=== PATIENT | female | born 1955 | race Caucasian/White ===

== ENCOUNTER → 2022-03-03 | Outpatient (CLI) | payer MEDICARE, BC ==
--- NOTE | 2022-03-05 18:05 | MM ---
Reason for Exam: Screening (asymptomatic). Last mammogram was performed 2 year(s) and 7 month(s) ago. Patient History: Hormonal Contraceptives, from age 18 until age 30. Maternal grandmother had breast cancer, age 80. Maternal aunt had breast cancer, age 45. Risk Values: Catrina 5 year model risk: 1.1%. NCI Lifetime model risk: 3.5%. Prior Study Comparison: 08/17/2019 Bilateral MG 3D screening mammo w/cad, [facility]. 09/06/2019 Bilateral US breast workup limited NAHOMY - 2, [facility]. Tissue Density: There are scattered fibroglandular densities. Findings: Analyzed By CAD. There is a 4 mm nodule 12 cm from the nipple in the upper outer posterior aspect left breast. This is nonspecific. Additional evaluation with ultrasound is recommended. Diagnostic mammography may be required ultrasound does not find a benign cyst No suspicious groups of microcalcifications, spiculated or lobular masses, Architectural distortion or other secondary signs of malignancy are mammographically apparent. Overall Assessment: Incomplete: need additional imaging evaluation, BI-RAD 0 Management: Diagnostic Breast Ultrasound of the left breast. A negative mammogram report should not preclude additional follow up of suspicious palpable abnormalities. Patient should continue monthly self breast exam. A clinical breast exam by your physician is recommended on an annual basis and results should be correlated with mammographic findings. Electronically signed and approved by: August Castaneda D.O. Radiologis
== END | disposition home or self-care (01) ==
LOC: RADMAMWWP 15:18
PROVIDERS: ATTEND Family Medicine
DX: Z12.31 Encounter for screening mammogram for malignant neoplasm of breast (principal); Z80.3 Family history of malignant neoplasm of breast
CPT/HCPCS: 77063; 77067

== ENCOUNTER → 2022-03-23 | Outpatient (CLI) | payer MEDICARE, BC ==
--- NOTE | 2022-03-23 15:49 | USB ---
Reason for Exam: Additional evaluation requested from abnormal screening. Patient History: Hormonal Contraceptives, from age 18 until age 30. Maternal grandmother had breast cancer, age 80. Maternal aunt had breast cancer, age 45. Risk Values: Catrina 5 year model risk: 1.1%. NCI Lifetime model risk: 3.5%. Technique: Method: Targeted. Prior Study Comparison: 08/17/2019 Bilateral MG 3D screening mammo w/cad, [facility]. 03/03/2022 Bilateral MG 3D screening mammo w/cad, [facility]. Findings: The upper outer quadrant of the left breast was scanned. Finding 1: Lymph Nodes - Intramammary findings. Laterality: Left. Size 4 x 4 x 4 mm. 2 O'clock Quadrant: Upper outer. 12 cm cm from nipple. There is a hypoechoic solid area 12 cm from the nipple 2:00 position which has some internal vascularity color flow. This appears to be a lymph node with a vascular hilum. Overall Assessment: Probably benign, BI-RAD 3 Management: Screening Mammogram of both breasts in 1 year. A clinical breast exam by your physician is recommended on an annual basis and results should be correlated with mammographic findings. Electronically signed and approved by: August Castaneda D.O. Radiologis
== END | disposition home or self-care (01) ==
LOC: RADUSWWP 15:17
PROVIDERS: ATTEND Family Medicine
DX: R92.8 Other abnormal and inconclusive findings on diagnostic imaging of breast (principal); Z80.3 Family history of malignant neoplasm of breast

== ENCOUNTER → 2022-06-25 | Outpatient (CLI) | payer MEDICARE, BC ==
[2022-06-25 23:15] LABS: Basophils # (A) 0.03 X 10*3/uL (0.00-0.10); Basophils % (A) 0.6 %; Eosinophils # (A) 0.17 X 10*3/uL (0.04-0.35); Eosinophils % (A) 3.4 %; HCT 39.4 % (37.2-46.3); HGB 12.7 g/dL (12.0-15.0); Immature Grans, Automated 0.4 %; Lymphocytes # (A) 1.56 X 10*3/uL (0.90-5.00); Lymphocytes % (A) 30.9 %; MCH 30.9 pg (27.0-32.0); MCHC 32.2 g/dL (32.0-37.0); MCV 95.9 fL (80.0-97.0); Mean Platelet Volume 11.1 fL (9.5-12.2); Monocytes # (A) 0.65 X 10*3/uL (0.20-1.00); Monocytes % (A) 12.9 %; NRBC Per 100 WBC 0 /100 WBCS (0.0-0.0); Neutrophils # (A) 2.62 X 10*3/uL (1.80-7.70); Neutrophils % (A) 51.8 %; Platelet Count 232 X 10*3/uL (140-440); RBC 4.11 X 10*6/uL (4.10-5.20); RDW 13.2 % (11.5-14.5); WBC 5.05 X 10*3/uL (4.50-10.00)
== END | disposition home or self-care (01) ==
LOC: LABPAT 15:36
PROVIDERS: ATTEND Obstetrics & Gynecology
DX: Z01.812 Encounter for preprocedural laboratory examination (principal); N95.0 Postmenopausal bleeding; N88.2 Stricture and stenosis of cervix uteri; I10 Essential (primary) hypertension
CPT/HCPCS: 85025; 93005

== ENCOUNTER 2023-09-24 11:39 | Day surgery (SDC) | payer MEDICARE, BC ==
[2023-09-23 08:58] VITALS: BMI 25.0
[2023-09-24] MEDS ORDERED: LACTATED RINGERS 1,000 ML IV ONE (11:50)
[2023-09-24] MEDS ORDERED: LACTATED RINGERS 1,000 ML IV SCH (12:04)
[2023-09-24 12:23] VITALS: RESP 16; TEMP 97.6
[2023-09-24] MEDS ORDERED: PROPOFOL 10 MG/ML 20 ML VIAL IV ONE (13:02)
--- NOTE | 2023-09-24 13:28 | P.PCN ---
Date of Procedure: 09/24/23 Procedure(s) Performed: BRIEF HISTORY: Patient is a 68-year-old pleasant female scheduled for an elective colonoscopy as a part of screening for colon cancer PROCEDURE PERFORMED: Colonoscopy. PREOPERATIVE DIAGNOSIS: Screening for colon cancer. . IV sedation per Anesthesia. PROCEDURE: After informed consent was obtained, the patient, was brought into the endoscopy unit. IV sedation was administered by Anesthesia under continuous monitoring. Digital rectal examination was normal. Initially the Olympus CF-160 flexible video colonoscope was then inserted in the rectum, gradually advanced into the cecum without any difficulty. Careful examination was performed as the scope was gradually being withdrawn. Ileocecal valve and the appendiceal orifice were visualized and appeared normal. Prep was fair.. Mucosa of the cecum, ascending colon, transverse colon, descending colon, sigmoid colon, and rectum appeared normal. Retroflexion was performed in the rectum and no lesions were seen. The patient tolerated the procedure well. IMPRESSION: Normal-appearing colon from rectum to cecum no evidence of colorectal neoplasia. RECOMMENDATIONS: Findings of this examination were discussed with the patient as well as a family. She was advised to have a repeat screening colonoscopy in 10 years.
[2023-09-24 13:59] VITALS: BP 114/65; PULSE 55
== END 2023-09-24 14:22 | disposition home or self-care (01) ==
LOC: ORWHC2ENDO 11:39
PROVIDERS: ATTEND Internal Medicine Gastroenterology
DX: Z12.11 Encounter for screening for malignant neoplasm of colon (principal)
CPT/HCPCS: J2704; G0121

== ENCOUNTER → 2024-10-05 | Day surgery (SDC) | payer MEDICARE, BC ==
[2024-10-05 10:18] VITALS: BP 103/68; PULSE 54; RESP 16; TEMP 97.4
--- NOTE | 2024-10-05 11:02 | USB ---
Reason for Exam: Additional evaluation requested from prior study. Patient History: Hormonal Contraceptives, from age 18 until age 30. Maternal grandmother had breast cancer, age 80. Maternal aunt had breast cancer, age 45. Risk Values: Catrina 5 year model risk: 1.1%. NCI Lifetime model risk: 3.2%. Technique: Method: Targeted. Prior Study Comparison: 08/17/2019 Bilateral MG 3D screening mammo w/cad, [facility]. 03/03/2022 Bilateral MG 3D screening mammo w/cad, [facility]. Findings: The upper outer quadrant of the right breast, the axilla of the right breast and the retroareolar of the right breast were scanned. Technique utilized:US breast limited RT Image; Ultrasound imaging of: Area of concern, retroareolar region and axilla. Area corresponding with right upper outer quadrant calcifications within a mass is identified 14 cm from the nipple at 11:00 measuring. Overall Assessment: Suspicious, BI-RAD 4 Management: Ultrasound Core Biopsy of the right breast. A clinical breast exam by your physician is recommended on an annual basis and results should be correlated with mammographic findings. This exam should not preclude additional follow-up of suspicious palpable abnormalities. Results were given to the patient verbally at the time of exam. [facility], , 10/05/2024 10:56 AM. Electronically signed and approved by: David James DO
--- NOTE | 2024-10-11 11:18 | MM ---
Reason for Exam: Post Procedure Mammogram. Last mammogram was performed 2 year(s) and 7 month(s) ago. Patient History: First Full-Term at age 18. Postmenopausal. Hormonal Contraceptives, from age 18 until age 30. Maternal grandmother had breast cancer, age 80. Maternal aunt had breast cancer, age 45. Risk Values: Catrina 5 year model risk: 1.4%. NCI Lifetime model risk: 4.0%. Prior Study Comparison: 08/17/2019 Bilateral MG 3D screening mammo w/cad, [facility]. 03/03/2022 Bilateral MG 3D screening mammo w/cad, [facility]. 03/23/2022 Left US breast workup limited , [facility]. Tissue Density: Right: There are scattered areas of fibroglandular density. Pathology Description: Location: 11 o'clock. Marker Left Behind. Needle Type: Mammotome Cores: 5 Gauge: 13 The procedure of ultrasound guided core biopsy was explained to the patient. Benefits, alternatives, and risks were discussed. An informed consent was then obtained. The patient was placed in supine positioning for imaging and for the procedure. The overlying skin was prepped and draped in usual sterile fashion. Lidocaine buffered with bicarbonate was used as anesthetic into the skin and subcutaneous tissue up to area of concern in the right breast. A darren was made with surgical scalpel. Under ultrasound guidance, a 12-gauge vacuum assisted biopsy gun device was used to obtain 4 core samples. Following this, a biopsy clip was left in lesion. The patient tolerated the procedure well without any immediate complication. The patient was kept in the radiology department for short stay after the procedure and then discharged home in stable condition. Postprocedure mammogram: The patient was transferred to mammography for physician ordered post procedure mammogram for clip placement verification. Post procedure mammogram demonstrates clip approximately 2.6 cm deep on lateral medial view. Not definitively seen on CCL view. Impression: Ultrasound-guided biopsy of suspicious lesion with calcifications in the right axilla approximately 11:00 14 14 cm from the the nipple. Post procedure mammogram demonstrated clip 2.6 cm away from this lesion. The lesion biopsied is suspicious regardless pathology results. If pathology comes back benign consider stereotactic biopsy of the grouped calcifications. [facility], Workstation: [id number], 10/05/2024 1:08 PM. Pathology Results: Result: Malignant, Invasive ductal carcinoma. Pathology and radiology were reviewed. Findings are concordant. RIGHT BREAST, ELEVEN O'CLOCK 14 CM FROM NIPPLE, NEEDLE CORE BIOPSY: Invasive moderately differentiated ductal carcinoma (grade 2) and high grade DCIS with comedo necrosis and calcifications. See Surgical Pathology Cancer Case Summary and Comment. Overall Assessment: Malignant Assessment: MG diagnostic mammo RT wo CAD - Right: Known biopsy proven malignancy, BI-RAD 6. Management: Surgical Consultation of the right breast. Electronically signed and approved by: David James DO
== END ==
LOC: RADMAMWWP 09:59
PROVIDERS: ATTEND Family Medicine
DX: D05.11 Intraductal carcinoma in situ of right breast (principal); Z80.3 Family history of malignant neoplasm of breast
CPT/HCPCS: 88305; 77065; 19083; 76642; A4648; 88341; 88342

== ENCOUNTER → 2024-10-27 | Outpatient (CLI) | payer MEDICARE, BC ==
[2024-10-27 08:08] VITALS: BP 107/64; PULSE 54; RESP 16; TEMP 97.9
--- NOTE | 2024-10-27 08:39 | P.GSCN ---
History of Present Illness Consult date: 10/27/24 Reason for Consult: right breast invasive ductal carcinoma Requesting physician: Eric Devine History of present illness: Mary Jane is a 69-year-old female seen in consultation for Dr. Devine regarding a biopsy-proven right breast invasive ductal carcinoma. She underwent a bilateral screening mammogram on 07-20-2024. This was personally reviewed and discussed with Dr. James from radiology. It revealed an area of calcifications in the upper outer quadrant of the right breast for which further evaluation was recommended. She underwent an ultrasound-guided core biopsy of the area on 10 05 24. The lesion was noted to be approximately 12 x 12 cm. It was a nodular area with calcifications within the nodule. Biopsy revealed an invasive ductal carcinoma. This was ER/MS positive and HER2 equivocal, Grade 2. This was found on a routine mammogram. She did not feel any lumps masses or nodules of concern in either breast. She has never had any surgery on her breast. She is not complaining of any recent trauma or infection in the breast. She is not complaining of any skin changes or nipple discharge. She is complaining of a mole on her right breast. caffeine: occasional nicotine: none, stopped 22 years ago BCP: used them about 5 years in remote past chocolate: weekly estrogen cream: vaginal cream used for about 2 years, uses weekly Hormonal History: menarche: 12 M1 age at first : 19, breast fed: yes menopause: 47 Family History: maternal grandmother: breast cancer maternal aunt: breast cancer maternal aunt: lung cancer daughter: thyroid cancer Surgical History: hip replacement right finger surgery tonsil Medical History: thoracic aortic aneurysm; they are watching this Dr. 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) CT scan yearly has had this for cancer screening as a former smoker for about 7 years Anxiety/depression slow heart down high cholesterol hypothyroid Social History: nicotine: used to smoke 2 ppd stopped 22 years ago alcohol: none drugs: Used marijuana in the past for sleeping Review of Systems - Constitutional Denies fever, Denies weight loss - EENT Eyes: denies blurred vision Ears: deny: decreased hearing Ears, nose, mouth and throat: Reports dysphagia - Breasts bilateral: as per HPI - Cardiovascular Denies chest pain, Denies shortness of breath - Respiratory Denies cough, Denies 7 - Gastrointestinal Gastrointestinal Comment(s): PUD in the past Reports as per HPI - Genitourinary Genitourinary: Denies dysuria, Denies hematuria Menstruation: Reports postmenopausal - Musculoskeletal Reports as per HPI - Integumentary Denies rash, Denies unusual bruising - Neurological Neurologic Comment(s): near normal hydrocephaly Reports headaches, Denies syncope - Psychiatric Reports anxiety, Reports depression - Endocrine Reports as per HPI - Hematologic/Lymphatic Denies easy bleeding, Denies easy bruising - Allergic/Immunologic Reports as per HPI Past Medical History Past Medical History: GERD/Reflux, Hyperlipidemia, Hypertension, Thyroid Disorder Additional Past Medical History / Comment(s): THORACIC ANEURYSM. PMB History of Any Multi-Drug Resistant Organisms: None Reported Past Surgical History: Joint Replacement, Orthopedic Surgery, Tonsillectomy Additional Past Surgical History / Comment(s): COLONOSCOPY. RT MIDDLE FINGER SX. TOTAL R HIP ARTHROPLASTY Past Anesthesia/Blood Transfusion Reactions: No Reported Reaction Additional Past Anesthesia/Blood Transfusion Reaction / Comm: no blood transfusion Past Psychological History: Anxiety Smoking Status: Former smoker Past Alcohol Use History: None Reported Additional Past Alcohol Use History / Comment(s): QUIT SMOKING 2004 Past Drug Use History: None Reported Additional Drug Use History / Comment(s): gummies for back pain tried months ago - Past Family History Father Family Medical History: Deep Vein Thrombosis (DVT) Sister(s) Family Medical History: Deep Vein Thrombosis (DVT) Daughter(s) Family Medical History: Cancer Additional Family Medical History / Comment(s): THYROID Medications and Allergies Home Medications Medication Instructions Recorded Confirmed Type Acetaminophen [Tylenol Extra 500 mg PO DAILY PRN 07/06/22 10/27/24 History Strength] Escitalopram [Lexapro] 20 mg PO DAILY 07/06/22 10/27/24 History Estradiol Cream [Estrace Cream 1 gm VAGINAL TUTH 07/06/22 10/27/24 History 0.01%] Famotidine [Pepcid] 20 mg PO DAILY PRN 07/06/22 10/27/24 History Omeprazole 20 mg PO DAILY PRN 07/06/22 10/27/24 History Simvastatin [Zocor] 20 mg PO HS 07/06/22 10/27/24 History diphenhydrAMINE [Benadryl] 25 - 50 mg PO HS PRN 07/06/22 10/27/24 History Benzonatate [Tessalon Perles] 100 - 200 mg PO TID PRN 10/27/22 10/27/24 History Levothyroxine Sodium [Synthroid] 88 mcg PO [id number] 10/27/22 10/27/24 History Loratadine [Claritin] 10 mg PO DAILY 10/27/22 10/27/24 History traMADol HCl [Ultram] 50 mg PO TID PRN #6 tab 10/29/22 10/27/24 Rx Losartan [Cozaar] 25 mg PO DAILY 09/23/23 10/27/24 History atenoloL [Tenormin] 12.5 mg PO BID 09/23/23 10/27/24 History methocarbamoL 500 mg PO DAILY PRN 09/23/23 10/27/24 History ALPRAZolam [Xanax] 0.25 mg PO BID 09/13/24 10/27/24 History Gabapentin [Neurontin] 300 mg PO TID 09/13/24 10/27/24 History Allergies Allergy/AdvReac Type Severity Reaction Status Date / Time aspirin Allergy Rash/Hives Verified 10/27/24 08:04 bacitracin Allergy Rash/Hives Verified 10/27/24 08:04 [From Neosporin ([id number])] neomycin Allergy Rash/Hives Verified 10/27/24 08:04 [From Neosporin ([id number])] nickel Allergy Rash/Hives Verified 10/27/24 08:04 NSAIDS (Non-Steroidal Allergy Rash/Hives Verified 10/27/24 08:04 Anti-Inflamma polymyxin B Allergy Rash/Hives Verified 10/27/24 08:04 [From Neosporin ([id number])] NICKEL Allergy Rash/Hives Uncoded 10/27/24 08:04 Surgical - Exam Vital Signs Temp Pulse Resp BP Pulse Ox 97.9 F 54 L 16 107/64 98 10/27/24 08:05 10/27/24 08:05 10/27/24 08:05 10/27/24 08:05 10/27/24 08:05 - Eyes normal ocular movement - Neck trachea midline - Respiratory normal respiratory effort, clear to auscultation - Cardiovascular Rhythm: regular Heart Sounds: normal: S1, S2 - Abdomen Abdomen: soft, non tender, no guarding, no rigid, no rebound - Integumentary normal turgor - Neurologic no disoriented, no combative - Musculoskeletal normal gait - Psychiatric oriented to time, oriented to person, oriented to place, speech is normal, memory intact Breast Exam: BRA: 38DD Insspection: bilateral grade 3 ptosis, right breast nevus palpation: right breast: Biopsy site clean and dry no evidence of hematoma or infection, fibrocystic breast changes Multi positional exam. I am not able to palpate the lesion definitively Right axilla: No adenopathy of concern Left breast: Multi positional exam no dominant masses or nodules of concern Left axilla: No adenopathy of concern Results Mammogram and ultrasound personally reviewed and discussed with Dr. James from radiology, approximately 1.2 cm area of nodularity/microcalcification in the upper outer quadrant of the right breast biopsy-proven to be invasive ductal carcinoma The localizing clip is not in the specimen however there are residual calcifications which should be localized and not the clip Assessment and Plan Assessment: Impression: Stage I invasive ductal carcinoma right breast upper outer quadrant Anxiety/depression Thoracic aortic aneurysm stable Prior nicotine dependence Estrogen vaginal cream which patient has stopped at this time Plan: Presentation of case at tumor board Patient is seen in conjunction with her daughter CC: Karyna Martin
== END ==
LOC: WWCWWP 07:54
PROVIDERS: ATTEND Surgery
DX: C50.411 Malignant neoplasm of upper-outer quadrant of right female breast (principal); F41.9 Anxiety disorder, unspecified; I71.20 Thoracic aortic aneurysm, without rupture, unspecified; Z80.3 Family history of malignant neoplasm of breast; Z88.6 Allergy status to analgesic agent; Z88.1 Allergy status to other antibiotic agents; Z91.048 Other nonmedicinal substance allergy status

== ENCOUNTER → 2024-12-14 | Outpatient (CLI) | payer MEDICARE, BC ==
[2024-12-14 14:01] VITALS: BP 113/57; PULSE 61; RESP 17; TEMP 97.4
--- NOTE | 2024-12-14 14:14 | P.BCPN ---
Subjective Progress Note Date: 12/14/24 History of Present Illness Consult date: 10/27/24 Reason for Consult: right breast invasive ductal carcinoma Requesting physician: Eric Devine History of present illness: Mary Jane is a 69-year-old female seen in consultation for Dr. Devine regarding a biopsy-proven right breast invasive ductal carcinoma. She underwent a bilateral screening mammogram on 07-20-2024. This was personally reviewed and discussed with Dr. James from radiology. It revealed an area of calcifications in the upper outer quadrant of the right breast for which further evaluation was recommended. She underwent an ultrasound-guided core biopsy of the area on 10 05 24. The lesion was noted to be approximately 12 x 12 cm. It was a nodular area with calcifications within the nodule. Biopsy revealed an invasive ductal carcinoma. This was ER/UT positive and HER2 (-), Grade 2. This was found on a routine mammogram. She did not feel any lumps masses or nodules of concern in either breast. She had never had any surgery on her breast. She was not complaining of any recent trauma or infection in the breast. She was not complaining of any skin changes or nipple discharge. She was complaining of a mole on her right breast. Case presented at tumor board on 10/31/24. The patient was called with the recommendations. She would like to continue to use her vaginal estrogen cream and this was discussed and it was felt that this would be non-worrisome as per medical oncology. She is going to have a needle localization lumpectomy with oncoplastic tissue transfer and sentinel node injection and sentinel node biopsy possible axillary node dissection. Clearance from cardiology Genetic testing offered she will have a discussion with genetic counselor She would like to have this done after a scheduled vacation in November and she is going to follow-up in proximity to that time The patient was seen in conjunction with her daughter and Cat Ocampo on her initial visit. caffeine: occasional nicotine: none, stopped 22 years ago BCP: used them about 5 years in remote past chocolate: weekly estrogen cream: vaginal cream used for about 2 years, uses weekly Hormonal History: menarche: 12 M1 age at first : 19, breast fed: yes menopause: 47 Family History: maternal grandmother: breast cancer maternal aunt: breast cancer maternal aunt: lung cancer daughter: thyroid cancer Surgical History: hip replacement right finger surgery tonsil Medical History: thoracic aortic aneurysm; they are watching this Dr. 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[facility]) CT scan yearly has had this for cancer screening as a former smoker for about 7 years Anxiety/depression slow heart down high cholesterol hypothyroid Social History: nicotine: used to smoke 2 ppd stopped 22 years ago alcohol: none drugs: Used marijuana in the past for sleeping Review of Systems - Constitutional Denies fever, Denies weight loss - EENT Eyes: denies blurred vision Ears: deny: decreased hearing Ears, nose, mouth and throat: Reports dysphagia - Breasts bilateral: as per HPI - Cardiovascular Denies chest pain, Denies shortness of breath - Respiratory Denies cough - Gastrointestinal Gastrointestinal Comment(s): PUD in the past Reports as per HPI - Genitourinary Genitourinary: Denies dysuria, Denies hematuria Menstruation: Reports postmenopausal - Musculoskeletal Reports as per HPI - Integumentary Denies rash, Denies unusual bruising - Neurological Neurologic Comment(s): near normal hydrocephaly Reports headaches, Denies syncope - Psychiatric Reports anxiety, Reports depression - Endocrine Reports as per HPI - Hematologic/Lymphatic Denies easy bleeding, Denies easy bruising - Allergic/Immunologic Reports as per HPI Past Medical History Past Medical History: GERD/Reflux, Hyperlipidemia, Hypertension, Thyroid Disorder Additional Past Medical History / Comment(s): THORACIC ANEURYSM. PMB History of Any Multi-Drug Resistant Organisms: None Reported Past Surgical History: Joint Replacement, Orthopedic Surgery, Tonsillectomy Additional Past Surgical History / Comment(s): COLONOSCOPY. RT MIDDLE FINGER SX. TOTAL R HIP ARTHROPLASTY Past Anesthesia/Blood Transfusion Reactions: No Reported Reaction Additional Past Anesthesia/Blood Transfusion Reaction / Comm: no blood transfusion Past Psychological History: Anxiety Smoking Status: Former smoker Past Alcohol Use History: None Reported Additional Past Alcohol Use History / Comment(s): QUIT SMOKING 2004 Past Drug Use History: None Reported Additional Drug Use History / Comment(s): gummies for back pain tried months ago - Past Family History Father Family Medical History: Deep Vein Thrombosis (DVT) Sister(s) Family Medical History: Deep Vein Thrombosis (DVT) Daughter(s) Family Medical History: Cancer Additional Family Medical History / Comment(s): THYROID Medications and Allergies Home Medications Medication Instructions Recorded Confirmed Type Acetaminophen [Tylenol Extra 500 mg PO DAILY PRN 07/06/22 10/27/24 History Strength] Escitalopram [Lexapro] 20 mg PO DAILY 07/06/22 10/27/24 History Estradiol Cream [Estrace Cream 1 gm VAGINAL TUTH 07/06/22 10/27/24 History 0.01%] Famotidine [Pepcid] 20 mg PO DAILY PRN 07/06/22 10/27/24 History Omeprazole 20 mg PO DAILY PRN 07/06/22 10/27/24 History Simvastatin [Zocor] 20 mg PO HS 07/06/22 10/27/24 History diphenhydrAMINE [Benadryl] 25 - 50 mg PO HS PRN 07/06/22 10/27/24 History Benzonatate [Tessalon Perles] 100 - 200 mg PO TID PRN 10/27/22 10/27/24 History Levothyroxine Sodium [Synthroid] 88 mcg PO MOTUWETHFRSA 10/27/22 10/27/24 History Loratadine [Claritin] 10 mg PO DAILY 10/27/22 10/27/24 History traMADol HCl [Ultram] 50 mg PO TID PRN #6 tab 10/29/22 10/27/24 Rx Losartan [Cozaar] 25 mg PO DAILY 09/23/23 10/27/24 History atenoloL [Tenormin] 12.5 mg PO BID 09/23/23 10/27/24 History methocarbamoL 500 mg PO DAILY PRN 09/23/23 10/27/24 History ALPRAZolam [Xanax] 0.25 mg PO BID 09/13/24 10/27/24 History Gabapentin [Neurontin] 300 mg PO TID 09/13/24 10/27/24 History Allergies Allergy/AdvReac Type Severity Reaction Status Date / Time aspirin Allergy Rash/Hives Verified 10/27/24 08:04 bacitracin Allergy Rash/Hives Verified 10/27/24 08:04 [From Neosporin ([id number])] neomycin Allergy Rash/Hives Verified 10/27/24 08:04 [From Neosporin ([id number])] nickel Allergy Rash/Hives Verified 10/27/24 08:04 NSAIDS (Non-Steroidal Allergy Rash/Hives Verified 10/27/24 08:04 Anti-Inflamma polymyxin B Allergy Rash/Hives Verified 10/27/24 08:04 [From Neosporin ([id number])] NICKEL Allergy Rash/Hives Uncoded 10/27/24 08:04 Objective - Vital Signs Vital Signs: Intake & Output 12/13/24 12/14/24 12/14/24 18:59 06:59 18:59 Weight 68.039 kg - Constitutional General appearance: Present: cooperative - EENT Eyes: Present: EOMI ENT: Present: hearing grossly normal - Neck Neck: Present: normal ROM - Breast Breast-Narrative: Breast Exam: BRA: 38DD Insspection: bilateral grade 3 ptosis, right breast nevus palpation: right breast: Biopsy site clean and dry no evidence of hematoma or infection, fibrocystic breast changes Multi positional exam. I am not able to palpate the lesion definitively Right axilla: No adenopathy of concern Left breast: Multi positional exam no dominant masses or nodules of concern Left axilla: No adenopathy of concern Ptosis: Grade 3: Right Breast Ptosis, Left Breast Ptosis Breast: left: normal Right Breast Palpation (Multi-positional): No dominant masses Left Breast Palpation (Multi-positional): No dominant masses Right Axilla Palpation: No adenopathy of concern Left Axilla Palpation: No adenopathy of concern - Respiratory Respiratory: bilateral: CTA - Cardiovascular Rhythm: regular Heart sounds: normal: S1, S2 - Integumentary Integumentary: Present: normal turgor - Musculoskeletal Musculoskeletal: Present: gait normal - Psychiatric Psychiatric: Present: A&O x's 3, appropriate affect, intact judgment & insight Assessment and Plan Plan: Impression: Mammogram and ultrasound personally reviewed and discussed with Dr. James from radiology, approximately 1.2 cm area of nodularity/microcalcification in the upper outer quadrant of the right breast biopsy-proven to be invasive ductal carcinoma The localizing clip is not in the specimen however there are residual calcifications which should be localized and not the clip Stage I invasive ductal carcinoma right breast upper outer quadrant Anxiety/depression Thoracic aortic aneurysm stable Prior nicotine dependence Estrogen vaginal cream which patient has stopped at this time Plan: I have reviewed her medical records, personally discussed and reviewed her radiographs with radiology, examined the patient, and discussed treatment options. right breast needle localization lumpectomy with oncoplastic tissue transfer and right sentinel node injection with right sentinel node biopsy possible right axillary node dissection. We have discussed the fact that she is over 68 and may not benefit from sentinel node biopsy. Despite this she understands the risks and benefits and wishes to have this performed. Clearance from internet technology manager this patient has thoracic aortic aneurysm clearance from Karyna Martin The clip is not in the area of concern, and the residual calcifications should be localized and not the clip The patient has a vacation scheduled for the end of November and would like to wait and have her surgery after her vacation. She understands the risks of waiting and wishes to wait. CC: Karyna Martin Prep Education Provided - Preoperative Education Given Pre-Op Kit Given Date: 12/14/24 - Functional Assessment Performed?: Yes (arm abduction passed) - Smoking Cessation Education Provided?: No (nonsmoker)
== END ==
LOC: WWCWWP 13:32
PROVIDERS: ATTEND Surgery
DX: C50.911 Malignant neoplasm of unspecified site of right female breast (principal); R92.0 Mammographic microcalcification found on diagnostic imaging of breast; F32.A Depression, unspecified; F41.9 Anxiety disorder, unspecified; I71.20 Thoracic aortic aneurysm, without rupture, unspecified; Z88.6 Allergy status to analgesic agent; Z88.1 Allergy status to other antibiotic agents; Z91.09 Other allergy status, other than to drugs and biological substances; Z88.8 Allergy status to other drugs, medicaments and biological substances

== ENCOUNTER 2024-12-26 08:30 | Day surgery (SDC) | payer MEDICARE, BC ==
[~2024-12-26 08:30] MED LIST: ACETAMINOPHEN TAB 500 MG TAB PO PRN; HYDROmorphone 0.5 MG/0.5 ML SYRINGE IVP PRN; LACTATED RINGERS 1,000 ML IV SCH; LIDOCAINE 1% (10MG/ML) FOR IV START INTRADERMA PRN; METHYLENE BLUE 50 MG/10 ML VIAL MISCELLANE ONE; ONDANSETRON 4 MG/2 ML VIAL IVP ONE; fentaNYL (PF) 50 MCG/ML 2 ML AMP IVP PRN
[2024-12-26] MEDS: DEXAMETHASONE SOD PHOSPHATE 4 MG/ML 1 ML VIAL IV ONE (09:23)
[2024-12-26] MEDS: IV FLUID CONTINUATION 1,000 ML IV ONE (09:26)
[2024-12-26] MEDS: SODIUM BICARB 8.4% 50 ML VIAL (1 MEQ/ML) MISCELLANE ONE (10:03)
[2024-12-26] MEDS: LIDOCAINE 1% INJ 10MG/ML (20 ML MDV) SQ ONE (10:03)
[2024-12-26] MEDS: METHYLENE BLUE 50 MG/10 ML VIAL MISCELLANE ONE (10:19)
--- NOTE | 2024-12-26 10:54 | NM ---
EXAMINATION TYPE: NM sentinel node injection DATE OF EXAM: 12/26/2024 COMPARISON: NONE CLINICAL INDICATION: Female, 69 years old with history of C50.411 BREAST CANCER; TECHNIQUE AND FINDINGS: The procedure of sentinel lymph node injection was explained to the patient. The benefits, alternatives, and risks were discussed. An informed consent was then obtained. Overlying skin is cleaned with sterile alcohol. Following this, 499 uCi Tc99m Tilmanocept was inject ed in the upper outer aspect of the right nipple intradermally. The patient tolerated the procedure well without any immediate complication. The patient was kept in the radiology department for short stay after the procedure and then taken to surgery for surgical p rocedure what is presumed intraoperative gamma probe will be used for sentinel lymph node detection. IMPRESSION: Right breast radiotracer injection for sentinel node localization as above. [facility], , 12/26/2024 10:51 AM
--- NOTE | 2024-12-26 11:02 | USB ---
Reason for Exam: Additional evaluation requested from prior study. Patient History: First Full-Term at age 18. Postmenopausal. Breast cancer, right, age 69. Hormonal Contraceptives, from age 18 until age 30. 10/05/2024, Malignant US biopsy breast VAD RT on the right side. Maternal grandmother had breast cancer, age 80. Maternal aunt had breast cancer, age 45. Technique: Method: Targeted. Prior Study Comparison: 08/17/2019 Bilateral MG 3D screening mammo w/cad, [facility]. 03/03/2022 Bilateral MG 3D screening mammo w/cad, [facility]. 10/05/2024 Right MG diagnostic mammo RT wo CAD, [facility]. Findings: The upper outer quadrant of the right breast was scanned. Limited ultrasound was performed following needle localization in order to confirm guidewire placement. Guidewire is placed appropriately. Overall Assessment: Known biopsy proven malignancy, BI-RAD 6 Management: Surgical Consultation of both breasts. A clinical breast exam by your physician is recommended on an annual basis and results should be correlated with mammographic findings. This exam should not preclude additional follow-up of suspicious palpable abnormalities. Results were given to the patient verbally at the time of exam. [facility], , 12/26/2024 10:59 AM. Electronically signed and approved by: Marcel Carias M.D. Radiologis
[2024-12-26] MEDS: FAMOTIDINE 20 MG/2 ML VIAL IV STA (11:13)
[2024-12-26] MEDS: MIDAZOLAM 2 MG/2 ML VIAL IV PRN (11:17)
--- NOTE | 2024-12-26 11:20 | P.NAPBC ---
NAPBC Queries - NAPBC Queries Was patient's case review presented at [facility] tumor board? If no, comment.: Yes Was patient's pathology reviewed at [facility]? If no, comment.: Yes Was breast conservation surgery offered? If no, comment.: Yes Was sentinel node biopsy offered? If no, comment.: Yes Was diagnosis confirmed by percutaneous core biopsy? If no, comment.: Yes Is patient mastectomy patient?: No Was a preop referral to reconstructive surgeon offered?: No [facility] Comments: right breast invasive ductal cancer Clinical Stage: right breast [id number]-G2
[2024-12-26] MEDS: HEPARIN SODIUM,PORCINE 5,000 UNIT/ML 1 ML VIAL SQ PRN (11:37)
[2024-12-26] MEDS ORDERED: LIDOCAINE 1% INJ 10MG/ML (20 ML MDV) ONE (11:45)
[2024-12-26] MEDS ORDERED: SUCCINYLCHOLINE CHLORIDE 200 MG/10 ML VIAL IV ONE (11:45)
[2024-12-26] MEDS ORDERED: GLYCOPYRROLATE 0.2 MG/ML 2 ML VIAL ONE (11:45)
[2024-12-26] MEDS ORDERED: PROPOFOL 10 MG/ML 20 ML VIAL IV ONE (11:45)
[2024-12-26] MEDS ORDERED: fentaNYL (PF) 50 MCG/ML 2 ML AMP ONE (11:45)
[2024-12-26] MEDS ORDERED: ePHEDrine 50 MG/ML 1 ML VIAL ONE (11:45)
[2024-12-26] MEDS ORDERED: PHENYLEPHRINE 10 MG/ML VIAL ONE (11:45)
[2024-12-26] MEDS ORDERED: WATER FOR INJECTION, STERILE 10 ML VIAL IV ONE (11:45)
[2024-12-26] MEDS ORDERED: LIDOCAINE 4% LTA KIT (4 ML) TOPICAL ONE (11:45)
[2024-12-26] MEDS: LIDOCAINE 1% INJ 10MG/ML (30 ML VIAL-PF) SQ ONE ×2 (12:22→13:12)
--- NOTE | 2024-12-26 13:17 | P.BCAON ---
Date of Procedure: 12/26/24 Preoperative Diagnosis: Right breast invasive ductal carcinoma Postoperative Diagnosis: Same Procedure(s) Performed: Right breast needle localization lumpectomy, sentinel node biopsy Surgeon: Tierney Bowser Estimated Blood Loss (ml): 5 IV fluids (ml): 700 Pathology: other (Right sentinel node, axillary tissue, right breast tissue) Condition: stable Disposition: same day Indications for Procedure: Biopsy-proven right breast invasive ductal carcinoma Operative Findings: Fibrofatty breast tissue Description of Procedure: Patient was first seen in the radiology department where needle localization of the area of concern in the right breast was performed. Additionally approximately 1-1/2 cc of half percent methylene blue was injected into the area of the tumor. Additionally radiotracer was injected in the periareolar region. The patient was then brought to the operative suite. Neoprobe was used to interrogate the axilla and radiotracer was noted in the axilla. Following induction of anesthesia the right breast and axilla were prepped and draped in a sterile fashion. The axilla was approached initially. Incision was made and carried down to the area of greatest radioactivity. The tissue was grasped us ing an Allis clamp. This was resected. A lymph node was identified and the 10- second count on the lymph node was 81,[id number]. The background count at 10 seconds was minimal. No additional radioactive lymph nodes or palpable lymph nodes of concern were noted in the axilla. The wound was irrigated. The deep tissues were closed using 3-0 Vicryl suture. The skin was closed using 4-0 Monocryl. Following this the area of the breast was approached. An incision was made and carried down along the shaft of the wire to the area of the pectoralis muscle. The tissue which had been dyed blue was resected as well. The specimen was removed and painted for orientation. Radiograph of the specimen revealed that the area of concern had been removed. The wound was well irrigated. Titanium clips were placed. Surgicel in powder form was placed. Posterior dissection was onto the pectoralis muscle. The deep tissues were closed using 3-0 Vicryl suture. The skin was closed using 4-0 Monocryl. The patient tolerated the procedure in stable condition. 20 cc of 1% lidocaine were injected into the area of the incision. Surgical glue was placed. - Sentinal Node Biopsy Operation performed with curative intent: Yes Tracer(s) used in upfront surgery (non-neoadjuvant): dye, radioactive tracer, other Tracer(s) used in the neoadjuvant setting: N/A All nodes present at end of dye-filled channel removed: Yes All significantly radioactive nodes were removed: Yes All palpably suspicious nodes were removed: Yes
[2024-12-26 13:39] VITALS: TEMP 97
[2024-12-26 14:13] VITALS: RESP 16
[2024-12-26 14:43] VITALS: BP 121/78; PULSE 64
--- NOTE | 2025-01-02 12:16 | MM ---
Pathology Description: Informed consent was obtained and all the patient's questions were answered. The microcalcifications and clip in question were localized mammographically. The standard sterile technique was utilized, as well as appropriate local anesthesia with 1% Lidocaine and bicarbonate. Localization needle followed by placement of a guidewire was performed under mammographic guidance. Verification images demonstrate appropriate deployment of the guidewire. The patient tolerated the procedure well and left the department in stable condition. Specimen radiograph demonstrates the microcalcifications and clip in question to reside within the specimen. Guidewire is also appreciated intact. IMPRESSION: Successful needle localization and open biopsy right breast with pathology results pending. [facility], Workstation: [employer], 12/26/2024 1:13 PM. Pathology Results: Result: Malignant, Invasive ductal carcinoma. Pathology and radiology were reviewed. Findings are concordant. A. RIGHT BREAST, LUMPECTOMY: Invasive high-grade ductal carcinoma with micropapillary features and high-grade ductal carcinoma in situ (DCIS) with comedonecrosis and microcalcification (see [facility] surgical pathology cancer case summary and comment). All margins negative for invasive carcinoma with invasive carcinoma very close to and less than 1 mm from anterior margin. All margins negative for DCIS with closest margin to DCIS measuring 6 mm from anterior margin. B. LYMPH NODE, RIGHT SENTINEL, DISSECTION: 1 sentinel lymph node positive for isolated tumor cells. CK7 with appropriate control on block B1 positive for rare capsular area isolated tumor cells. LINWOOD with appropriate control on block B2 negative C. RIGHT AXILLARY TISSUE, DISSECTION: 1 axillary lymph node, negative for metastatic carcinoma. Overall Assessment: Malignant Management: Surgical Consultation of the right breast. Electronically signed and approved by: Marcel Carias M.D. Radiologis
== END 2024-12-26 15:10 | disposition home or self-care (01) ==
LOC: OR 08:30
PROVIDERS: ATTEND Surgery
DX: D05.11 Intraductal carcinoma in situ of right breast (principal); K21.9 Gastro-esophageal reflux disease without esophagitis; I71.20 Thoracic aortic aneurysm, without rupture, unspecified; I10 Essential (primary) hypertension; E78.5 Hyperlipidemia, unspecified; F41.9 Anxiety disorder, unspecified; F32.A Depression, unspecified; Z78.0 Asymptomatic menopausal state; Z80.3 Family history of malignant neoplasm of breast; Z89.011 Acquired absence of right thumb; Z88.6 Allergy status to analgesic agent; Z88.1 Allergy status to other antibiotic agents; Z79.890 Hormone replacement therapy; Z79.899 Other long term (current) drug therapy
CPT/HCPCS: 88342; 88307; 88341; 76098; 19281; 76642; 38792; 38505; 19301; C1819; A9520; J2250; J0330; J1644; J1100; J0690; J2003 ×2; J3010; J3490; J2704; Q9968; J2371; J1596

== ENCOUNTER → 2025-01-04 | Outpatient (CLI) | payer MEDICARE, BC ==
[2025-01-04 12:24] VITALS: BP 104/70; PULSE 58; RESP 17; TEMP 97.8
--- NOTE | 2025-01-04 12:51 | P.BCPO ---
Progress Note - Text Progress Note Date: 01/04/25 Mary Jane is a 69 year old female status post right breast lumpectomy and SNB on 12-26-24. Her pathology revealed IDC high grade (-) margins, and DCIS (-) 4mm margins. Two nodes removed one with isolated tumor cells. Tumor size 1 cm. Pathologic stage: [id number] ER+Pr+Her2- . She is doing well. Examination: Lungs: Clear Heart: Regular rate and rhythm Incision breast and axilla clean and dry questionable small seroma Impression: Patient doing well postoperative Plan: Follow-up in 4 months Oncotype and tumor Follow-up medical oncology Follow-up radiation oncology Follow-up here sooner any questions or concerns CC: Karyna Martin Post Op Education - Post Op Education Post Op Education Provided Date: 01/04/25 - Functional Assessment Performed?: Yes (passed arm abduction) Path Report - Was patient given path report? Path Report Date Given: 01/04/25
== END ==
LOC: WWCWWP 11:59
PROVIDERS: ATTEND Surgery
DX: D05.01 Lobular carcinoma in situ of right breast (principal); Z98.890 Other specified postprocedural states; Z88.6 Allergy status to analgesic agent; Z88.1 Allergy status to other antibiotic agents; Z91.048 Other nonmedicinal substance allergy status

== ENCOUNTER → 2025-04-13 | Outpatient (CLI) | payer MEDICARE, BC ==
[2025-04-13 14:46] VITALS: BP 98/64; PULSE 61; RESP 16; TEMP 98.1
--- NOTE | 2025-04-13 14:46 | P.PN ---
Subjective Progress Note Date: 04/13/25 Principal diagnosis: right breast [id number] AR+ HER2- 04-13-25 History of Present Illness Reason for Consult: right breast invasive ductal carcinoma Requesting physician: Eric Devine History of present illness: Mary Jane is a 70-year-old female seen in consultation for Dr. Devine regarding a biopsy-proven right breast invasive ductal carcinoma. She underwent a bilateral screening mammogram on 07-20-2024. This was personally reviewed and discussed with Dr. James from radiology. It revealed an area of calcifications in the upper outer quadrant of the right breast for which further evaluation was recommended. She underwent an ultrasound-guided core biopsy of the area on 10 05 24. The lesion was noted to be approximately 12 x 12 cm. It was a nodular area with calcifications within the nodule. Biopsy revealed an invasive ductal carcinoma. This was ER/AR positive and HER2 (-), Grade 2. This was found on a routine mammogram. She did not feel any lumps masses or nodules of concern in either breast. She had never had any surgery on her breast. She was not complaining of any recent trauma or infection in the breast. She was not complaining of any skin changes or nipple discharge. She was complaining of a mole on her right breast. Case presented at tumor board on 10/31/24. The patient was called with the recommendations. She would like to continue to use her vaginal estrogen cream and this was discussed and it was felt that this would be non-worrisome as per medical oncology. She underwent a needle localization lumpectomy with oncoplastic tissue transfer and sentinel node injection and sentinel node biopsy possible on 12-26-24 Invasive ductal carcinoma high-grade, negative margins, DCIS, negative margins 4 mm. 2 nodes removed 1 with isolated tumor cells Tumor size 1 cm Pathologic stage; [id number] AR+ HER2- note radiation oncology reviewed: 04-02-25; completed last week; the radiation initiated an anxiety attack causing difficulty for her to swallow She is going to follow up with medical oncology genetic testing VUS caffeine: occasional nicotine: none, stopped 22 years ago BCP: used them about 5 years in remote past chocolate: weekly estrogen cream: vaginal cream used for about 2 years, uses weekly Hormonal History: menarche: 12 M1 age at first : 19, breast fed: yes menopause: 47 Family History: maternal grandmother: breast cancer maternal aunt: breast cancer maternal aunt: lung cancer daughter: thyroid cancer Surgical History: hip replacement right finger surgery tonsil Medical History: thoracic aortic aneurysm; they are watching this Dr. 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[facility]) CT scan yearly has had this for cancer screening as a former smoker for about 7 years Anxiety/depression slow heart down high cholesterol hypothyroid Social History: nicotine: used to smoke 2 ppd stopped 22 years ago alcohol: none drugs: Used marijuana in the past for sleeping Review of Systems - Constitutional Denies fever, Denies weight loss - EENT Eyes: denies blurred vision Ears: deny: decreased hearing Ears, nose, mouth and throat: Reports dysphagia - Breasts bilateral: as per HPI - Cardiovascular Denies chest pain, Denies shortness of breath - Respiratory Denies cough - Gastrointestinal Gastrointestinal Comment(s): PUD in the past Reports as per HPI - Genitourinary Genitourinary: Denies dysuria, Denies hematuria Menstruation: Reports postmenopausal - Musculoskeletal Reports as per HPI - Integumentary Denies rash, Denies unusual bruising - Neurological Neurologic Comment(s): near normal hydrocephaly Reports headaches, Denies syncope - Psychiatric Reports anxiety, Reports depression - Endocrine Reports as per HPI - Hematologic/Lymphatic Denies easy bleeding, Denies easy bruising - Allergic/Immunologic Reports as per HPI Past Medical History Past Medical History: GERD/Reflux, Hyperlipidemia, Hypertension, Thyroid Disorder Additional Past Medical History / Comment(s): THORACIC ANEURYSM. PMB History of Any Multi-Drug Resistant Organisms: None Reported Past Surgical History: Joint Replacement, Orthopedic Surgery, Tonsillectomy Additional Past Surgical History / Comment(s): COLONOSCOPY. RT MIDDLE FINGER SX. TOTAL R HIP ARTHROPLASTY Past Anesthesia/Blood Transfusion Reactions: No Reported Reaction Additional Past Anesthesia/Blood Transfusion Reaction / Comm: no blood transfusion Past Psychological History: Anxiety Smoking Status: Former smoker Past Alcohol Use History: None Reported Additional Past Alcohol Use History / Comment(s): QUIT SMOKING 2004 Past Drug Use History: None Reported Additional Drug Use History / Comment(s): gummies for back pain tried months ago - Past Family History Father Family Medical History: Deep Vein Thrombosis (DVT) Sister(s) Family Medical History: Deep Vein Thrombosis (DVT) Daughter(s) Family Medical History: Cancer Additional Family Medical History / Comment(s): THYROID Medications and Allergies Home Medications Medication Instructions Recorded Confirmed Type Acetaminophen [Tylenol Extra 500 mg PO DAILY PRN 07/06/22 10/27/24 History Strength] Escitalopram [Lexapro] 20 mg PO DAILY 07/06/22 10/27/24 History Estradiol Cream [Estrace Cream 1 gm VAGINAL TUTH 07/06/22 10/27/24 History 0.01%] Famotidine [Pepcid] 20 mg PO DAILY PRN 07/06/22 10/27/24 History Omeprazole 20 mg PO DAILY PRN 07/06/22 10/27/24 History Simvastatin [Zocor] 20 mg PO HS 07/06/22 10/27/24 History diphenhydrAMINE [Benadryl] 25 - 50 mg PO HS PRN 07/06/22 10/27/24 History Benzonatate [Tessalon Perles] 100 - 200 mg PO TID PRN 10/27/22 10/27/24 History Levothyroxine Sodium [Synthroid] 88 mcg PO [id number] 10/27/22 10/27/24 History Loratadine [Claritin] 10 mg PO DAILY 10/27/22 10/27/24 History traMADol HCl [Ultram] 50 mg PO TID PRN #6 tab 10/29/22 10/27/24 Rx Losartan [Cozaar] 25 mg PO DAILY 09/23/23 10/27/24 History atenoloL [Tenormin] 12.5 mg PO BID 09/23/23 10/27/24 History methocarbamoL 500 mg PO DAILY PRN 09/23/23 10/27/24 History ALPRAZolam [Xanax] 0.25 mg PO BID 09/13/24 10/27/24 History Gabapentin [Neurontin] 300 mg PO TID 09/13/24 10/27/24 History Allergies Allergy/AdvReac Type Severity Reaction Status Date / Time aspirin Allergy Rash/Hives Verified 10/27/24 08:04 bacitracin Allergy Rash/Hives Verified 10/27/24 08:04 [From Neosporin ([id number])] neomycin Allergy Rash/Hives Verified 10/27/24 08:04 [From Neosporin ([id number])] nickel Allergy Rash/Hives Verified 10/27/24 08:04 NSAIDS (Non-Steroidal Allergy Rash/Hives Verified 10/27/24 08:04 Anti-Inflamma polymyxin B Allergy Rash/Hives Verified 10/27/24 08:04 [From Neosporin ([id number])] NICKEL Allergy Rash/Hives Uncoded 10/27/24 08:04 Objective - Constitutional General appearance: Present: cooperative - EENT Eyes: Present: EOMI ENT: Present: hearing grossly normal - Neck Neck: Present: normal ROM - Respiratory Respiratory: bilateral: CTA - Cardiovascular Rhythm: regular Heart sounds: normal: S1, S2 - Integumentary Integumentary: Present: normal turgor - Musculoskeletal Musculoskeletal: Present: gait normal - Psychiatric Psychiatric: Present: A&O x's 3, appropriate affect, intact judgment & insight - Additional findings Additional findings: Breast Exam: BRA: [id number] Insspection: bilateral grade 3 ptosis, right breast nevus palpation: right breast: fibrocystic breast changes Multi positional exam, post surgical and radiation changes; seroma right breast upper outer quadrant at lumpectomy site Right axilla: No adenopathy of concern Left breast: Multi positional exam no dominant masses or nodules of concern Left axilla: No adenopathy of concern Assessment and Plan Assessment: Impression: Stage I invasive ductal carcinoma right breast upper outer quadrant Anxiety/depression Thoracic aortic aneurysm stable Prior nicotine dependence Estrogen vaginal cream which patient has stopped at this time completed radiation therapy seroma oncotype pending Plan: bilateral mammogram in June 2026 with appointment appointment with medical oncology follow up with radiation oncology follow up sooner any concerns Aspiration seroma Following informed consent the area of concern in the right breast was prepped using alcohol. An 18-gauge needle and a 20 cc syringe was used to aspirate 115 cc of straw-colored fluid with complete resolution of the seroma. The patient tolerated this in stable condition. CC: Dr. Devine
== END ==
LOC: WWCWWP 14:04
PROVIDERS: ATTEND Surgery
DX: C50.911 Malignant neoplasm of unspecified site of right female breast (principal); F41.9 Anxiety disorder, unspecified; F32.A Depression, unspecified; I71.20 Thoracic aortic aneurysm, without rupture, unspecified; N64.89 Other specified disorders of breast; Z87.891 Personal history of nicotine dependence; Z92.3 Personal history of irradiation; Z88.6 Allergy status to analgesic agent; Z88.0 Allergy status to penicillin; Z91.048 Other nonmedicinal substance allergy status; Z88.8 Allergy status to other drugs, medicaments and biological substances